=== PATIENT | male | born 1975 | race Two or more races ===

== ENCOUNTER 2020-12-15 10:07 | Inpatient (IN) | payer OTHER ==
[~2020-12-15] VITALS: Ht 190.5 cm; Wt 142.7 kg
[2020-12-15] MEDS ORDERED: cloNIDine HCL 0.1 MG TAB PO ONE (10:15)
[2020-12-15 10:56] LABS: Basophils # (auto) 0.1 10 ^3/uL (0-0.2); Eosinophils # (auto) 0.2 10 ^3/uL (0-0.8); Eosinophils % (auto) 1.8 % (0.0-7.0); Hematocrit 41.4 % (41.0-53.0); Hemoglobin 13.6 g/dL (13.5-17.5); Lymphocytes # (auto) 1.8 10 ^3/uL (0.4-5.4); Lymphocytes % (auto) 20.6 % (10.0-50.0); Mean Corpuscular Hemoglobin 28.2 pg (28.0-32.0); Mean Corpuscular Volume 85.7 fL (80.0-100.0); Monocytes % (auto) 11.4 % (0.0-12.0); Neutrophils # (auto) 5.6 10 ^3/uL (1.6-8.6); Neutrophils % (auto) 65.2 % (37.0-80.0); Nucleated Red Blood Cells % 0.2 %; Red Blood Cells 4.83 10^6/uL (4.5-5.90); White Blood Cell 8.6 10^3/uL (4.4-10.8)
[2020-12-15 11:15] LABS: Albumin 3.6 g/dL (3.4-5.0); Calcium 8.9 mg/dL (8.5-10.1); Magnesium 2.2 mg/dL (1.6-2.6); Potassium 3.9 mmol/L (3.5-5.1)
[2020-12-15 11:26] LABS: BUN/Creatinine Ratio 13.3; Bilirubin, Total 0.9 mg/dL (0.2-1.0)
[2020-12-15] MEDS ORDERED: ENOXAPARIN SOD 100 MG/1 ML SYRINGE SC ONE (12:15)
[2020-12-15] MEDS ORDERED: ASPirin 81 mg TAB PO ONE ×2 (12:15→16:45)
[2020-12-15] MEDS ORDERED: MORPHINE SULFATE INJECTION 2 MG/ML SYRG IV PRN ×2 (13:45→17:00)
[2020-12-15] MEDS ORDERED: NITROGLYCERIN 0.4 MG SL TAB SL PRN ×2 (13:45→17:00)
[2020-12-15] MEDS ORDERED: LABETALOL HCL 5 MG/ML 4ML SYRINGE IV PRN (16:45)
[2020-12-15] MEDS ORDERED: NIFEdipine ER 30 MG TAB PO ONE ×2 (16:45→19:00)
[2020-12-15] MEDS ORDERED: ENOXAPARIN SOD 40 MG/0.4 ML SYRINGE SC ONE (16:45)
[2020-12-15] MEDS ORDERED: BENAZEPRIL HCL 10 MG TAB PO ONE (16:45)
[2020-12-15] MEDS ORDERED: LACTATED RINGER'S 1,000 ML IV ONE (16:45)
[2020-12-15] MEDS ORDERED: METOPROLOL SUCCINATE XL 50 MG TAB PO ONE ×2 (16:45→19:00)
[2020-12-15] MEDS ORDERED: ATORVASTATIN 20 MG TAB PO ONE (16:45)
[2020-12-15] MEDS ORDERED: SOD CHL 0.45% 1,000 ML IV SCH (16:45)
[2020-12-15] MEDS ORDERED: LABETALOL HCL 5 MG/ML 4ML SYRINGE IV ONE (17:35)
[2020-12-15] MEDS ORDERED: LABETALOL HCL 5 MG/ML ML 20ML VIAL IV ONE (18:52)
[2020-12-15] MEDS ORDERED: POTASSIUM CHL 20 Meq TABLET PO ONE (19:00)
[2020-12-15] MEDS ORDERED: FUROSEMIDE 100 MG/10ML VIAL IV ONE (19:00)
[2020-12-15] MEDS ORDERED: hydrALAZINE HCL 20 MG/ML VL IV PRN (19:00)
[2020-12-15 21:04] LABS: INR 1.54 (0.9-1.15); Partial Thromboplastin Time 26.8 sec (23.6-33.0)
[2020-12-15] MEDS: ATORVASTATIN 20 MG TAB PO SCH (22:25)
[2020-12-15 23:09] LABS: Urine Bacteria NONE SEEN /hpf (None Seen); Urine Blood Negative /uL (Negative); Urine Specific Gravity 1.008 (1.001-1.035); Urine WBC 1 /hpf (0 - 3)
[2020-12-16] MEDS ORDERED: FUROSEMIDE 40 MG/4 ML VIAL IV SCH (06:00)
[2020-12-16] MEDS: ASPirin 81 mg TAB PO SCH (09:38)
[2020-12-16] MEDS: POTASSIUM CHL 20 Meq TABLET PO SCH (09:38)
[2020-12-16] MEDS: NIFEdipine ER 30 MG TAB PO SCH (09:39)
[2020-12-16] MEDS: ENOXAPARIN SOD 40 MG/0.4 ML SYRINGE SC SCH (09:40)
[2020-12-16] MEDS ORDERED: BENAZEPRIL HCL 10 MG TAB PO SCH (10:00)
[2020-12-16] MEDS ORDERED: METOPROLOL SUCCINATE XL 50 MG TAB PO SCH ×2 (10:00)
[2020-12-16] MEDS ORDERED: NIFEdipine ER 30 MG TAB PO SCH (10:00)
[2020-12-16] MEDS: METOPROLOL TARTRATE 25 MG TAB PO SCH ×2 (10:14→22:20)
[2020-12-16 10:36] LABS: Albumin 3.4 g/dL (3.4-5.0); Potassium 3.7 mmol/L (3.5-5.1)
[2020-12-16 10:41] LABS: BUN/Creatinine Ratio 13.3; Bilirubin, Total 0.9 mg/dL (0.2-1.0); Total Protein 6.8 g/dL (6.4-8.2)
[2020-12-16 10:57] LABS: Alcohol, Urine < 3.0 mg/dL (0-10); Amphetamine Screen, Urine NEGATIVE (NEGATIVE); Barbiturate Scree,Urine NEGATIVE (NEGATIVE); Benzodiazephine Screen, Urine NEGATIVE (NEGATIVE); Cannabinoid Screen, Urine NEGATIVE (NEGATIVE); Cocaine Screen, Urine NEGATIVE (NEGATIVE); Opiate Scree,Urine NEGATIVE (NEGATIVE); Phencyclidine Screen, Urine NEGATIVE (NEGATIVE)
[2020-12-16] MEDS ORDERED: traMADol HCL 50 MG TAB PO PRN (12:45)
[2020-12-16] MEDS ORDERED: PROMETHAZINE HCL 25 MG/ML 1ML IV PRN (12:45)
[2020-12-16] MEDS ORDERED: ACETAMINOPHEN 500 MG TAB PO PRN (12:45)
[2020-12-16] MEDS ORDERED: TEMAZEPAM 15 MG CAP PO PRN (12:45)
[2020-12-16] MEDS: FUROSEMIDE 20 MG/2 ML VIAL IV SCH (17:44)
[2020-12-16] MEDS: ATORVASTATIN 20 MG TAB PO SCH (22:40)
[2020-12-17] MEDS: FUROSEMIDE 20 MG/2 ML VIAL IV SCH ×2 (06:12→18:00)
[2020-12-17 08:26] LABS: Basophils # (auto) 0.1 10 ^3/uL (0-0.2); Basophils % (auto) 0.8 % (0.0-2.0); Eosinophils # (auto) 0.3 10 ^3/uL (0-0.8); Eosinophils % (auto) 3.6 % (0.0-7.0); Hematocrit 41.6 % (41.0-53.0); Hemoglobin 13.8 g/dL (13.5-17.5); Lymphocytes # (auto) 1.5 10 ^3/uL (0.4-5.4); Lymphocytes % (auto) 16.9 % (10.0-50.0); Mean Corpuscular Hemoglobin 28.8 pg (28.0-32.0); Mean Corpuscular Hgb Conc. 33.2 g/dL (32.0-36.0); Mean Corpuscular Volume 86.6 fL (80.0-100.0); Neutrophils # (auto) 6.1 10 ^3/uL (1.6-8.6); Neutrophils % (auto) 67.7 % (37.0-80.0); Nucleated Red Blood Cells % 0.1 %; Red Cell Distribution Width 14.7 % (11.8-14.3)
[2020-12-17 08:44] LABS: BUN/Creatinine Ratio 13.4; Calcium 8.5 mg/dL (8.5-10.1); Potassium 3.5 mmol/L (3.5-5.1)
[2020-12-17 08:49] LABS: Bilirubin, Total 0.7 mg/dL (0.2-1.0); Total Protein 6.8 g/dL (6.4-8.2)
[2020-12-17] MEDS: ASPirin 81 mg TAB PO SCH (08:49)
[2020-12-17] MEDS: ENOXAPARIN SOD 40 MG/0.4 ML SYRINGE SC SCH (08:49)
[2020-12-17] MEDS: METOPROLOL TARTRATE 25 MG TAB PO SCH (08:53)
[2020-12-17] MEDS: NIFEdipine ER 30 MG TAB PO SCH (08:55)
[2020-12-17] MEDS: POTASSIUM CHL 20 Meq TABLET PO SCH (09:10)
[2020-12-17] MEDS: NITROGLYCERIN 0.2MG/HR TOPICAL PATCH TD SCH (10:34)
[2020-12-17] MEDS ORDERED: PANTOPRAZOLE 40 MG TAB PO ONE (12:00)
[2020-12-17 12:06] LABS: Amylase 116 U/L (25-115); Lipase 78 U/L (73-393)
[2020-12-17 20:15] VITALS: BP 141/78
[2020-12-17 22:00] VITALS: BP 141/78
[2020-12-17] MEDS: CARVEDILOL 3.125 MG TAB PO SCH (22:11)
[2020-12-17] MEDS: ATORVASTATIN 20 MG TAB PO SCH (22:11)
[2020-12-18 05:00] VITALS: BP 129/83
[2020-12-18] MEDS: FUROSEMIDE 20 MG/2 ML VIAL IV SCH ×2 (05:39→19:11)
[2020-12-18] MEDS ORDERED: ADENOSINE 118 MG in GIVE UN-DILUTED 0 ML IV ONE (08:00)
[2020-12-18 08:52] VITALS: BP 130/94
[2020-12-18 09:00] VITALS: BP 120/77
[2020-12-18] MEDS: ASPirin 81 mg TAB PO SCH (10:52)
[2020-12-18] MEDS: POTASSIUM CHL 20 Meq TABLET PO SCH (10:53)
[2020-12-18] MEDS: CARVEDILOL 3.125 MG TAB PO SCH ×2 (10:53→21:58)
[2020-12-18] MEDS: NIFEdipine ER 30 MG TAB PO SCH (10:53)
[2020-12-18] MEDS: LISINOPRIL 10 MG TAB PO SCH (10:54)
[2020-12-18] MEDS: ENOXAPARIN SOD 40 MG/0.4 ML SYRINGE SC SCH (10:54)
[2020-12-18] MEDS: PANTOPRAZOLE 40 MG TAB PO SCH (10:54)
[2020-12-18 13:00] VITALS: BP 140/75
[2020-12-18] MEDS: NITROGLYCERIN 0.2MG/HR TOPICAL PATCH TD SCH (13:11)
[2020-12-18] MEDS ORDERED: OMNIPAQUE ORAL SOLN 500ml 12mg/ml PO ONE (15:52)
[2020-12-18 17:00] VITALS: BP 122/87
[2020-12-18] MEDS: ATORVASTATIN 20 MG TAB PO SCH (21:59)
[2020-12-18 22:00] VITALS: BP 122/81
[2020-12-19 05:00] VITALS: BP 126/87
[2020-12-19] MEDS: FUROSEMIDE 20 MG/2 ML VIAL IV SCH ×2 (05:48→19:44)
[2020-12-19 06:15] LABS: Basophils # (auto) 0.1 10 ^3/uL (0-0.2); Basophils % (auto) 1.1 % (0.0-2.0); Eosinophils # (auto) 0.3 10 ^3/uL (0-0.8); Eosinophils % (auto) 3.9 % (0.0-7.0); Hematocrit 42.3 % (41.0-53.0); Hemoglobin 14.4 g/dL (13.5-17.5); Lymphocytes # (auto) 1.3 10 ^3/uL (0.4-5.4); Lymphocytes % (auto) 18.6 % (10.0-50.0); Mean Corpuscular Hemoglobin 29.2 pg (28.0-32.0); Mean Corpuscular Hgb Conc. 34.1 g/dL (32.0-36.0); Mean Corpuscular Volume 85.6 fL (80.0-100.0); Monocytes # (auto) 0.9 10 ^3/uL (0-1.3); Neutrophils # (auto) 4.3 10 ^3/uL (1.6-8.6); Neutrophils % (auto) 63.4 % (37.0-80.0); Nucleated Red Blood Cells % 0.1 %; Red Blood Cells 4.94 10^6/uL (4.5-5.90); Red Cell Distribution Width 14.2 % (11.8-14.3); White Blood Cell 6.9 10^3/uL (4.4-10.8)
[2020-12-19 06:36] LABS: Potassium 3.9 mmol/L (3.5-5.1)
[2020-12-19 06:38] LABS: BUN/Creatinine Ratio 14.5; Calcium 8.9 mg/dL (8.5-10.1)
[2020-12-19 09:00] VITALS: BP 129/85
[2020-12-19] MEDS ORDERED: CARVEDILOL 12.5 MG TAB PO SCH (10:00)
[2020-12-19] MEDS: ASPirin 81 mg TAB PO SCH (10:22)
[2020-12-19] MEDS: PANTOPRAZOLE 40 MG TAB PO SCH (10:23)
[2020-12-19] MEDS: POTASSIUM CHL 20 Meq TABLET PO SCH (10:23)
[2020-12-19] MEDS: NITROGLYCERIN 0.2MG/HR TOPICAL PATCH TD SCH (10:24)
[2020-12-19] MEDS: ENOXAPARIN SOD 40 MG/0.4 ML SYRINGE SC SCH (10:24)
[2020-12-19] MEDS: LISINOPRIL 10 MG TAB PO SCH (10:24)
[2020-12-19 13:00] VITALS: BP 137/100
== END 2020-12-19 22:52 | disposition short-term general hospital (02) | DRG 190 ==
LOC: ER 10:07 → TELE 13:43 → TELE-WESTW 12-17 20:15
PROVIDERS: ADMIT Hospitalist; ATTEND Internal Medicine
DX: I21.4 Non-ST elevation (NSTEMI) myocardial infarction (principal); N17.0 Acute kidney failure with tubular necrosis; I50.41 Acute combined systolic (congestive) and diastolic (congestive) heart failure; I47.2 Ventricular tachycardia; I13.0 Hypertensive heart and chronic kidney disease with heart failure and stage 1 through stage 4 chronic kidney disease, or unspecified chronic kidney disease; E78.5 Hyperlipidemia, unspecified; I16.1 Hypertensive emergency; N18.31 Chronic kidney disease, stage 3a; I25.5 Ischemic cardiomyopathy; E66.01 Morbid (severe) obesity due to excess calories; F17.210 Nicotine dependence, cigarettes, uncomplicated; E11.22 Type 2 diabetes mellitus with diabetic chronic kidney disease; Z91.19 Patient's noncompliance with other medical treatment and regimen; Z68.39 Body mass index [BMI] 39.0-39.9, adult; Z91.013 Allergy to seafood
CPT/HCPCS: 36415; 71046; 74176; 76705; 78452; 78582; 80048; 80053; 80061; 80307; 81001; 82150; 82550; 83036; 83690; 83735; 83880; 84100; 84443; 84484; 85025; 85379; 85610; 85730; 86141; 87426; 93005; 93017; 93306; 93970; 96361; 96372; 96374; 96375; 96376; G0378; J0153; J3490

== ENCOUNTER 2021-09-26 15:32 | Inpatient (IN) | payer MEDICAID, OTHER ==
[~2021-09-26] VITALS: Ht 190.5 cm; Wt 136.2 kg
[2021-09-26] MEDS ORDERED: ASPirin 81 mg TAB PO ONE (15:45)
[2021-09-26 16:07] LABS: Basophils # (auto) 0.1 10 ^3/uL (0-0.2); Basophils % (auto) 0.6 % (0.0-2.0); Eosinophils # (auto) 0.2 10 ^3/uL (0-0.8); Eosinophils % (auto) 2.2 % (0.0-7.0); Hematocrit 38.2 % (41.0-53.0); Hemoglobin 12.9 g/dL (13.5-17.5); Lymphocytes # (auto) 2.4 10 ^3/uL (0.4-5.4); Lymphocytes % (auto) 24.6 % (10.0-50.0); Mean Corpuscular Hemoglobin 28.1 pg (28.0-32.0); Mean Corpuscular Hgb Conc. 33.8 g/dL (32.0-36.0); Mean Corpuscular Volume 83.2 fL (80.0-100.0); Monocytes # (auto) 1.3 10 ^3/uL (0-1.3); Monocytes % (auto) 12.8 % (0.0-12.0); Neutrophils # (auto) 5.8 10 ^3/uL (1.6-8.6); Neutrophils % (auto) 59.8 % (37.0-80.0); Nucleated Red Blood Cells % 0.1 %; Red Blood Cells 4.59 10^6/uL (4.5-5.90); Red Cell Distribution Width 14.1 % (11.8-14.3); White Blood Cell 9.8 10^3/uL (4.4-10.8)
[2021-09-26 16:26] LABS: Albumin 3.8 g/dL (3.4-5.0); BUN/Creatinine Ratio 14.3; Calcium 9.2 mg/dL (8.5-10.1); Magnesium 2.6 mg/dL (1.6-2.6); Potassium 3.8 mmol/L (3.5-5.1)
[2021-09-26 16:39] LABS: Bilirubin, Total 0.3 mg/dL (0.2-1.0); Total Protein 7.3 g/dL (6.4-8.2)
[2021-09-26] MEDS ORDERED: IOHEXOL 350 MG/ML 100ML IJ ONE (18:59)
[2021-09-26] MEDS ORDERED: ONDANSETRON HCL 4 MG/2 ML VIAL IV PRN (20:15)
[2021-09-26] MEDS ORDERED: NITROGLYCERIN 0.4 MG SL TAB SL PRN (20:15)
[2021-09-26] MEDS ORDERED: MORPHINE SULFATE INJ 2 MG/ml SYRG IV PRN ×2 (20:15)
[2021-09-26] MEDS ORDERED: SACU1TAB7 PO (20:33)
[2021-09-26] MEDS ORDERED: BUME2TAB5 PO (20:34)
[2021-09-26] MEDS ORDERED: SERT25TA14 PO (20:34)
[2021-09-26] MEDS ORDERED: CARV6.2551 PO (20:34)
[2021-09-26] MEDS ORDERED: SPIR25TA8 PO (20:34)
[2021-09-26] MEDS ORDERED: GABA300C10 PO (20:34)
[2021-09-26] MEDS: SODIUM CHLORIDE 0.9% 1,000 ML IV SCH (21:30)
[2021-09-27] MEDS: ATORVASTATIN 20 MG TAB PO SCH ×2 (01:05→21:44)
[2021-09-27 05:26] LABS: Calcium 8.2 mg/dL (8.5-10.1); Potassium 4.3 mmol/L (3.5-5.1)
[2021-09-27 05:29] LABS: BUN/Creatinine Ratio 14.1
[2021-09-27 06:31] LABS: Basophils # (auto) 0.1 10 ^3/uL (0-0.2); Basophils % (auto) 1.2 % (0.0-2.0); Eosinophils # (auto) 0.4 10 ^3/uL (0-0.8); Eosinophils % (auto) 5.6 % (0.0-7.0); Hematocrit 37.1 % (41.0-53.0); Hemoglobin 12.3 g/dL (13.5-17.5); Lymphocytes # (auto) 1.9 10 ^3/uL (0.4-5.4); Lymphocytes % (auto) 25.3 % (10.0-50.0); Mean Corpuscular Hemoglobin 28.1 pg (28.0-32.0); Mean Corpuscular Hgb Conc. 33.1 g/dL (32.0-36.0); Mean Corpuscular Volume 84.9 fL (80.0-100.0); Monocytes # (auto) 0.8 10 ^3/uL (0-1.3); Neutrophils # (auto) 4.2 10 ^3/uL (1.6-8.6); Neutrophils % (auto) 56.9 % (37.0-80.0); Red Blood Cells 4.36 10^6/uL (4.5-5.90); Red Cell Distribution Width 14.1 % (11.8-14.3); White Blood Cell 7.4 10^3/uL (4.4-10.8)
[2021-09-27 06:46] LABS: Urine Bacteria NONE SEEN /hpf (None Seen); Urine Blood Negative /uL (Negative); Urine Specific Gravity 1.046 (1.001-1.035); Urine WBC 13 /hpf (0 - 3)
[2021-09-27] MEDS: ASPirin-EC 81 mg tab PO SCH (09:51)
[2021-09-27] MEDS: SODIUM CHLORIDE 0.9% 1,000 ML IV SCH ×3 (09:55→19:55)
[2021-09-27 22:18] VITALS: BP 146/84
[2021-09-28 05:52] VITALS: BP 113/65
[2021-09-28 09:00] VITALS: BP 119/62
[2021-09-28] MEDS: ASPirin-EC 81 mg tab PO SCH (09:14)
[2021-09-28] MEDS ORDERED: BUMETANIDE 1 MG TAB PO SCH (10:00)
[2021-09-28] MEDS ORDERED: SPIRONOLACTONE 25 MG TAB PO SCH (10:00)
[2021-09-28] MEDS ORDERED: CARVEDILOL 3.125 MG TAB PO SCH (10:00)
[2021-09-28] MEDS ORDERED: VITA200T2 PO (11:45)
[2021-09-28] MEDS: SODIUM CHLORIDE 0.9% 1,000 ML IV SCH (12:07)
[2021-09-28 12:23] VITALS: BP 119/62
[2021-09-28 12:55] VITALS: BP 145/89
[2021-09-29] MEDS ORDERED: SACUBITRIL-VALSARTAN 24mg/26mg TAB PO SCH (10:00)
== END 2021-09-28 14:33 | disposition home or self-care (01) | DRG 203 ==
LOC: ER 15:32 → TELE 20:05 → TELE-WESTW 09-27 14:06
PROVIDERS: ADMIT Hospitalist; ATTEND Hospitalist
PROC: 4B02XTZ Measurement of Cardiac Defibrillator, External Approach (ICD-10-PCS; principal; 2021-09-28)
DX: R07.89 Other chest pain (principal); N17.0 Acute kidney failure with tubular necrosis; R57.8 Other shock; I42.8 Other cardiomyopathies; E66.01 Morbid (severe) obesity due to excess calories; N18.9 Chronic kidney disease, unspecified; I12.9 Hypertensive chronic kidney disease with stage 1 through stage 4 chronic kidney disease, or unspecified chronic kidney disease; Z20.822 Contact with and (suspected) exposure to COVID-19; Z86.73 Personal history of transient ischemic attack (TIA), and cerebral infarction without residual deficits; Z91.013 Allergy to seafood; Z79.899 Other long term (current) drug therapy; Z83.3 Family history of diabetes mellitus; Z95.810 Presence of automatic (implantable) cardiac defibrillator; Z71.3 Dietary counseling and surveillance; Z68.37 Body mass index [BMI] 37.0-37.9, adult
CPT/HCPCS: 36415; 71045; 71275; 80048; 80053; 80061; 81001; 83735; 84443; 84484; 85025; 85379; 93005; 93306; 96361; 96374; G0378

== ENCOUNTER → 2022-01-09 | Day surgery (SDC) | payer MEDICAID ==
[2022-01-07 12:02] LABS: Urine Bacteria NONE SEEN /hpf (None Seen); Urine Blood Negative /uL (Negative); Urine Specific Gravity 1.014 (1.001-1.035); Urine WBC 4 /hpf (0 - 3)
[2022-01-07 12:06] LABS: Basophils # (auto) 0.1 10 ^3/uL (0-0.2); Eosinophils # (auto) 0.3 10 ^3/uL (0-0.8); Monocytes # (auto) 0.7 10 ^3/uL (0-1.3); Neutrophils # (auto) 4.3 10 ^3/uL (1.6-8.6); White Blood Cell 7.4 10^3/uL (4.4-10.8)
[2022-01-07 12:10] LABS: Basophils % (auto) 1.2 % (0.0-2.0); Eosinophils % (auto) 3.6 % (0.0-7.0); Hematocrit 39.2 % (41.0-53.0); Hemoglobin 12.8 g/dL (13.5-17.5); Lymphocytes % (auto) 27.6 % (10.0-50.0); Mean Corpuscular Hemoglobin 27.4 pg (28.0-32.0); Mean Corpuscular Hgb Conc. 32.6 g/dL (32.0-36.0); Mean Corpuscular Volume 83.9 fL (80.0-100.0); Monocytes % (auto) 9.5 % (0.0-12.0); Neutrophils % (auto) 58.1 % (37.0-80.0); Red Blood Cells 4.67 10^6/uL (4.5-5.90); Red Cell Distribution Width 14.8 % (11.8-14.3)
[2022-01-07 12:15] LABS: INR 1.24 (0.9-1.15); Partial Thromboplastin Time 25.4 sec (24.6-33.4)
[2022-01-07 12:55] LABS: Potassium 4.9 mmol/L (3.5-5.1)
[2022-01-07 13:45] LABS: Albumin 3.6 g/dL (3.4-5.0); BUN/Creatinine Ratio 17.3; Bilirubin, Total 0.6 mg/dL (0.2-1.0); Calcium 8.7 mg/dL (8.5-10.1); Total Protein 7.3 g/dL (6.4-8.2)
[~2022-01-09] VITALS: Ht 188 cm; Wt 134.3 kg
[~2022-01-09] MED LIST: APIX5TAB PO; ATOR40TA52 PO; BUME2TAB5 PO; BUPIVACAINE HCL 0.25% P/F 10 ML VIAL ONE; CARV6.2551 PO; DAKINS HALF STR 0.25% (NaHypochlorite) 473 ML TOPICAL SOL TOP ONE; GABA300C10 PO; HYDROmorphone HCL 2 MG/ML VL/or syr IV PRN; LIDOCAINE 1%HCL (LOCAL ANESTH) 10 ML MDV ONE; LIDOCAINE 2% (LOCAL ANESTH.) PF 5ml SDV ONE; MIDAZOLAM HCL 2MG/2ML 2ml VIAL (1mg/ml) ONE; ONDANSETRON HCL 4 MG/2 ML VIAL IV PRN; ONDANSETRON HCL 4 MG/2 ML VIAL ONE; PROPOFOL 10 MG/ML 20 ML IV ONE; SACU1TAB7 PO; SERT25TA14 PO; SPIR25TA8 PO; TRAM50TA2 PO; VITA200T2 PO; ceFAZolin 1GM/50ML 100 ML IV ONE; fentaNYL CITRATE 100 MCG/2 ML VL ONE
[2022-01-09 11:05] VITALS: BP 138/92
== END | disposition home or self-care (01) ==
LOC: SUR 07:20
PROVIDERS: ATTEND Podiatrist
DX: M20.42 Other hammer toe(s) (acquired), left foot (principal); M20.10 Hallux valgus (acquired), unspecified foot; I12.9 Hypertensive chronic kidney disease with stage 1 through stage 4 chronic kidney disease, or unspecified chronic kidney disease; N18.30 Chronic kidney disease, stage 3 unspecified; K21.9 Gastro-esophageal reflux disease without esophagitis; F32.A Depression, unspecified; E78.5 Hyperlipidemia, unspecified; G62.9 Polyneuropathy, unspecified; G90.09 Other idiopathic peripheral autonomic neuropathy; L84 Corns and callosities; F17.200 Nicotine dependence, unspecified, uncomplicated; Z83.3 Family history of diabetes mellitus; Z95.0 Presence of cardiac pacemaker; Z20.822 Contact with and (suspected) exposure to COVID-19
CPT/HCPCS: 28285; 28308; 36415; 80053; 81001; 85025; 85610; 85730; J0690; J2001; J2250; J2405; J2704; J3010; J3490; U0003